=== PATIENT | female | born 1965 | race Caucasian/White ===

== ENCOUNTER 2023-09-02 18:31 | Observation (INO) | payer OTHER ==
[2023-09-02 22:26] VITALS: BMI 37.5
[2023-09-02] MEDS ORDERED: Glucagon 1 MG/ML KIT IM PRN (22:45)
[2023-09-02] MEDS ORDERED: Ondansetron PF 4 MG/2 ML Vial IVP PRN (22:45)
[2023-09-02] MEDS ORDERED: Dextrose 5% in Water 1,000 ML IV PRN (22:45)
[2023-09-02] MEDS ORDERED: hydrALAZINE 20 MG/ML VIAL SLOW IVP PRN (22:45)
[2023-09-02] MEDS ORDERED: Acetaminophen 325 MG TAB PO PRN (22:45)
[2023-09-02] MEDS ORDERED: Dextrose 50% Abboject 50 ML SYRINGE SLOW IVP PRN (22:45)
[2023-09-02] MEDS ORDERED: Ondansetron ODT 4 MG TAB PO PRN (22:45)
[2023-09-02] MEDS ORDERED: Cyclobenzaprine 10 MG TAB PO PRN (22:49)
[2023-09-02] MEDS ORDERED: Aspirin 81 mg Enteric Coated Tablet PO SCH (23:00)
[2023-09-03 06:37] LABS: #Eosinphils 0.2 thou/uL (0.0-0.7); #Monocytes 0.5 thou/uL (0.11-0.59); #Neutrophils 1.9 thou/uL (1.40-6.50); %Basophils 0.5 % (0.0-1.0); %Eosinophils 3.4 % (0.0-10.0); %Lymphocytes 53.1 % (21.0-51.0); %Monocytes 9.6 % (0.0-10.0); %Neutrophils 33.2 % (42.0-75.0); Hematocrit 39.7 % (36.0-47.0); Hemoglobin 13.3 g/dL (12.0-16.0); Mean Corpuscular HGB CONC 33.5 g/dL (32.0-36.0); Mean Corpuscular Hemoglobin 30.6 pg (27.0-31.0); Mean Corpuscular Volume 91.3 fl (78.0-98.0); Mean Platelet Volume 10.7 fL (7.4-10.4); Platelet Count 143 10x3/uL (130-400); RBC Distribution Width 12.7 % (11.5-14.5); Red Blood Cell (RBC) Count 4.35 mill/uL (4.20-5.40); White Blood Cell (WBC) Count 5.6 10x3/uL (4.8-10.8)
[2023-09-03 06:45] LABS: Hemoglobin A1c 5.9 % (4.0-6.0)
[2023-09-03 07:34] LABS: ALT (SGPT) 64 U/L (8-55); AST (SGOT) 69 U/L (5-34); Albumin 3.9 g/dL (3.5-5.0); Alkaline Phosphatase 101 U/L (40-110); Anion Gap 12 mmol/L (10-20); BUN (Urea Nitrogen) 15 mg/dL (9.8-20.1); Bilirubin, Total 0.6 mg/dL (0.2-1.2); Calc. Creatinine Clearance 115 mL/min (70-130); Calcium 9.7 mg/dL (7.8-10.44); Carbon Dioxide 24 mmol/L (22-29); Cardiac Risk 5.3 (Less than 4.5); Chloride 108 mmol/L (98-107); Cholesterol 187 mg/dl (< 200 Desired); Estimated GFR 86; Globulin 3.2 g/dL (2.4-3.5); Glucose 145 mg/dL (70-105); HDL Cholesterol 35 mg/dL (>60 Neg Risk); LDL Cholesterol, Calculated 122 mg/dL; Magnesium 2.2 mg/dL (1.6-2.6); Potassium 3.3 mmol/L (3.5-5.1); Protein, Total 7.1 g/dL (6.0-8.3); Sodium 141 mmol/L (136-145); Triglycerides 152 mg/dL (Less than 150)
[2023-09-03] MEDS ORDERED: FLU VACC QS2023-24(6MOS UP)/PF 60 MCG/0.5 ML SYRINGE IM ONE (09:00)
[2023-09-03] MEDS ORDERED: Topiramate 100 MG TAB PO SCH (09:00)
[2023-09-03] MEDS ORDERED: Aspirin 81 mg Enteric Coated Tablet PO SCH (09:00)
[2023-09-03 11:32] VITALS: BP 116/68; TEMP 97.6
[2023-09-03] MEDS ORDERED: Electrolyte Replacement Protocol 1 EACH FS ONE (13:26)
[2023-09-03] MEDS ORDERED: Potassium Chloride 20 MEQ TAB PO SCH (13:30)
[2023-09-03] MEDS ORDERED: Electrolyte Replacement Protocol FS PRN (13:30)
[2023-09-03] MEDS ORDERED: metFORMIN 500 MG TAB PO SCH (17:00)
[2023-09-03] MEDS ORDERED: Atorvastatin Calcium 20 MG TAB PO SCH (21:00)
== END 2023-09-03 15:00 | disposition home or self-care (01) ==
LOC: 2SE 21:40
PROVIDERS: ADMIT Family Medicine; ATTEND Internal Medicine
DX: R29.810 Facial weakness (principal); I08.1 Rheumatic disorders of both mitral and tricuspid valves; I10 Essential (primary) hypertension; E87.6 Hypokalemia; Z86.73 Personal history of transient ischemic attack (TIA), and cerebral infarction without residual deficits; Z88.1 Allergy status to other antibiotic agents; Z88.0 Allergy status to penicillin; Z91.040 Latex allergy status; Z79.82 Long term (current) use of aspirin; Z79.899 Other long term (current) drug therapy
CPT/HCPCS: 36415; 36416; 70551; 80053; 80061; 83036; 83735; 84443; 85025; 90471; 90686; 93306; 93880; G0008; G0378